=== PATIENT | female | born 1995 | race Caucasian/White ===

== ENCOUNTER 2017-04-14 01:11 | Observation (INO) | payer SELFPAY ==
[2017-04-14] MEDS ORDERED: ONDANSETRON 4 MG/2 ML VIAL IVPUSH ONE ×2 (04:13→10:22)
[2017-04-14 04:17] LABS: BASOPHIL 0.2 % (0-2.0); MCH 28.2 pg (25.7-33.7); MCHC 33.7 g/dl (32.0-36.0); MEAN CELL VOLUME 83.5 fl (80-96); MEAN PLT VOLUME 9.7 fl (7.5-11.1); NEUTROPHILS 89.8 % (42.8-82.8); PLATELET COUNT 296 K/MM3 (134-434); RDW 13.7 % (11.6-15.6); WHITE BLOOD COUNT 12.5 K/mm3 (4.0-10.0)
[2017-04-14] MEDS ORDERED: FAMOTIDINE 20 MG/50 ML IVPB 20 MG/50 ML MG IVPB ONE ×2 (04:18→04:23)
[2017-04-14] MEDS ORDERED: PANTOPRAZOLE SODIUM 40 MG VIAL IVPUSH ONE (04:18)
[2017-04-14] MEDS ORDERED: MAG HYDROX/AL HYDROX/SIMETH 355 ML ORAL.SUSP PO ONE (04:18)
[2017-04-14] MEDS ORDERED: PANTOPRAZOLE SODIUM 40 MG/100 ML BAG IVPB ONE (04:22)
[2017-04-14] MEDS ORDERED: MAG HYDROX/AL HYDROX/SIMETH 30 ML UNIT-DOSE CUP ONE (04:22)
--- NOTE | 2017-04-14 04:32 | PDOC ---
History of Present Illness - General Chief Complaint: Pain, Acute Stated Complaint: DIFFICULTY BREATHING, DIZZINESS Time Seen by Provider: 04/14/17 03:46 - History of Present Illness Initial Comments: 04/14/17 04:31 CHIEF COMPLAINT: abdominal pain, vomiting HISTORY OF PRESENT ILLNESS: 22 yo F with no significant PMH presents to ED with vomiting and diarrhea after eating sandwich and burger. Patient complains of RUQ pain and tenderness and states she has been vomiting "non stop, over 10-15 times" since this afternoon. Patient reports she has also had 4 episodes of diarrhea "back to back." She denies any fever but reports chills. Her LMP was "earlier this month" but very light, she states she has a Mirena IUD. No recent travel or sick contacts. PAST MEDICAL HISTORY: Denies past medical history FAMILY HISTORY: Denies SOCIAL HISTORY: Denies tobacco, alcohol, illicit drug use. SURGICAL HISTORY: Denies ALLERGIES: No known drug allergies REVIEW OF SYSTEMS General/Constitutional: Chills, weakness. . HEENT: Denies change in vision. Denies ear pain or discharge. Denies sore throat. Cardiovascular: Denies chest pain or shortness of breath. Respiratory: Denies cough, wheezing, or hemoptysis. Gastrointestinal: Persistent vomiting and diarrhea, RLQ pain. Denies rectal bleeding. Genitourinary: Denies dysuria, frequency, or change in urination. PHYSICAL EXAM General Appearance: Uncomfortable-appearing, appropriately dressed. No apparent distress. HEENT: EOMI, PERRLA. No conjunctival pallor. No photophobia, scleral icterus. Respiratory/Chest: Lungs CTAB. Cardiovascular: RRR. S1, S2. Gastrointestinal/Abdominal: Generalized tenderness to abdomen but more localized to RUQ. Normal bowel sounds. Abdomen soft, non-distended. No tenderness or rebound tenderness. No organomegaly, pulsatile mass, guarding, hernia, hepatomegaly, splenomegaly. Musculoskeletal/Extremities: Normal inspection. FROM of all extremities, normal capillary refill. Pelvis Stable. No CVA tenderness. No tenderness to extremities, pedal edema, swelling, erythema or deformity. Integumentary: Appropriate color, dry, warm. No cyanosis, erythema, jaundice or rash Neurologic: track repairer helper II-XII intact. Fully oriented, alert. Appropriate mood/affect. Motor strength 5/5. No appreciable EOM palsy, facial droop or sensory deficit. 04/14/17 05:18 04/14/17 07:51 Past History - Past Medical History Allergies/Adverse Reactions: Allergies Allergy/AdvReac Type Severity Reaction Status Date / Time No Known Allergies Allergy Verified 04/14/17 01:34 Home Medications: Ambulatory Orders NK [No Known Home Medication] 04/14/17 Asthma: No Cancer: No Cardiac Disorders: No COPD: No Diabetes: No HTN: No Seizures: No Thyroid Disease: No - Immunization History Immunization Up to Date: Yes - Suicide/Smoking/Psychosocial Hx Smoking Status: No Smoking History: Never smoked Number of Cigarettes Smoked Daily: 0 Hx Alcohol Use: No Drug/Substance Use Hx: No Hx Substance Use Treatment: No *Physical Exam - Vital Signs Last Vital Signs Temp Pulse Resp BP Pulse Ox 98.3 F 104 H 30 H 124/76 100 04/14/17 01:42 04/14/17 01:42 04/14/17 01:42 04/14/17 01:42 04/14/17 01:42 ED Treatment Course - LABORATORY CBC & Chemistry Diagram: 04/15/17 08:08 04/15/17 08:08 - ADDITIONAL ORDERS Additional order review: 04/14/17 04:05 RBC 4.71 D MCV 83.5 MCHC 33.7 RDW 13.7 D MPV 9.7 Neutrophils % 89.8 H Lymphocytes % 8.2 D Monocytes % 1.8 L Eosinophils % 0.0 D Basophils % 0.2 - Medications Given in the ED: ED Medications Discontinued Medications Generic Name Dose Route Start Last Admin Trade Name Freq PRN Reason Stop Dose Admin Al Hydroxide/Mg Hydroxide 30 ml 04/14/17 04:18 04/14/17 04:26 Mylanta Suspension - PO 04/14/17 04:19 30 ml ONCE ONE Administration Ondansetron HCl 4 mg 04/14/17 04:13 04/14/17 04:19 Zofran Injection IVPUSH 04/14/17 04:14 4 mg ONCE ONE Administration Pantoprazole Sodium 40 mg 04/14/17 04:18 04/14/17 04:27 Protonix Iv IVPUSH 04/14/17 04:19 40 mg ONCE ONE Administration Medical Decision Making - Medical Decision Making 04/14/17 07:48 22 yo F with no significant PMH presents to ED with vomiting and diarrhea after eating sandwich and burger. -IVF, Zofran, toradol -CBC, CMP, lipase/amylase -UA, UCx, upreg labs: WBC 12.5, otherwise unremarkable Patient reassesesd, at this time she still complains of pain and is still vomiting. -Regland, camiadryl Patient raassessed, still pale and uncomfortable appearing, -Bentyl po Patient reassessed, continues to have abd pain and tenderness to RUQ, patient diaphoretic will order abdomen and pelvis ct Case discussed in detail with oncoming emergency provider including history, physical exam and ancillary studies. In brief, this patient is being seen in the ED for a chief complaint of: abd pain I have completed the initial assessment interview note and have ordered the following labs: cbc, cmp, lipase, amylase, urine I have reviewed the following results: all Pending results: CT Plan for disposition as follows: pending Oncoming NPA Christopher has assumed care for the patient and will complete the evaluation and treatment. *DC/Admit/Observation/Transfer Diagnosis at time of Disposition: Intractable vomiting with nausea - Discharge Dispostion Disposition: HOME Condition at time of disposition: Improved - Referrals - Patient Instructions - Post Discharge Activity
[2017-04-14 04:43] LABS: ALBUMIN 4.2 g/dl (3.4-5.0); AMYLASE 69 U/L (25-115); ANION GAP 9 (8-16); BILIRUBIN,TOTAL 0.6 mg/dL (0.2-1.0); CALCIUM 8.9 mg/dL (8.5-10.1); CO2 25 mmol/L (21-32); CREATININE 0.7 mg/dL (0.55-1.02); GLUCOSE,RANDOM 137 mg/dL (74-106); SGOT/AST 10 U/L (15-37); SGPT/ALT 20 U/L (12-78); TOT PROT 8.3 g/dl (6.4-8.2)
[2017-04-14 04:44] LABS: ALK PHOS 72 U/L (45-117)
[2017-04-14] MEDS ORDERED: DICYCLOMINE HCL 20 MG TABLET PO ONE (05:44)
[2017-04-14] MEDS ORDERED: DICYCLOMINE HCL 10 MG CAPSULE ONE (05:46)
[2017-04-14] MEDS ORDERED: METOCLOPRAMIDE HCL INJECTION 10 MG/2 ML VIAL IVPUSH ONE (06:21)
[2017-04-14] MEDS ORDERED: METOCLOPRAMIDE HCL INJECTION 10 MG/2 ML VIAL ONE (06:27)
--- NOTE | 2017-04-14 09:13 | PDOC ---
*Physical Exam - Vital Signs Last Vital Signs Temp Pulse Resp BP Pulse Ox 97.8 F 84 20 124/86 100 04/14/17 08:10 04/14/17 08:10 04/14/17 08:10 04/14/17 08:10 04/14/17 08:10 - Physical Exam General Appearance: Yes: Appropriately Dressed. No: Apparent Distress HEENT: positive: ERIC, Normal Voice, Symmetrical Respiratory/Chest: positive: Lungs Clear, Normal Breath Sounds. negative: Chest Tender, Respiratory Distress, Accessory Muscle Use Cardiovascular: positive: Regular Rhythm, Regular Rate Gastrointestinal/Abdominal: positive: Normal Bowel Sounds, Soft. negative: Tender Musculoskeletal: positive: Normal Inspection. negative: CVA Tenderness Extremity: positive: Normal Capillary Refill, Normal Range of Motion. negative : Normal Inspection Integumentary: positive: Normal Color, Dry, Warm Neurologic: positive: extension service agent II-XII NML intact, Fully Oriented, Alert, Normal Mood/ Affect ED Treatment Course - LABORATORY CBC & Chemistry Diagram: 04/14/17 04:05 04/14/17 04:14 - ADDITIONAL ORDERS Additional order review: Laboratory Results 04/14/17 04/14/17 04/14/17 06:59 04:14 04:05 Sodium 140 Potassium 3.8 Chloride 106 Carbon Dioxide 25 Anion Gap 9 BUN 9 D Creatinine 0.7 D Creat Clearance w eGFR > 60 Random Glucose 137 H D Calcium 8.9 Total Bilirubin 0.6 AST 10 L ALT 20 Alkaline Phosphatase 72 D Total Protein 8.3 H Albumin 4.2 Total Amylase 69 Lipase 62 L Serum , Qual Negative 04/14/17 04:05 RBC 4.71 D MCV 83.5 MCHC 33.7 RDW 13.7 D MPV 9.7 Neutrophils % 89.8 H Lymphocytes % 8.2 D Monocytes % 1.8 L Eosinophils % 0.0 D Basophils % 0.2 - Medications Given in the ED: ED Medications Discontinued Medications Generic Name Dose Route Start Last Admin Trade Name Freq PRN Reason Stop Dose Admin Al Hydroxide/Mg Hydroxide 30 ml 04/14/17 04:18 04/14/17 04:26 Mylanta Suspension - PO 04/14/17 04:19 30 ml ONCE ONE Administration Dicyclomine HCl 20 mg 04/14/17 05:44 04/14/17 05:52 Bentyl - PO 04/14/17 05:45 20 mg ONCE ONE Administration Diphenhydramine HCl 25 mg 04/14/17 06:21 04/14/17 06:44 Benadryl Injection - IVPUSH 04/14/17 06:22 25 mg ONCE ONE Administration Famotidine/Sodium Chloride 20 mg in 50 mls @ 100 mls/hr 04/14/17 04:18 04:27 Pepcid 20 Mg Premixed Ivpb - IVPB 04/14/17 04:47 100 mls/hr ONCE ONE Administration Metoclopramide HCl 10 mg 04/14/17 06:21 04/14/17 06:44 Reglan Injection - IVPUSH 04/14/17 06:22 10 mg ONCE ONE Administration Ondansetron HCl 4 mg 04/14/17 04:13 04/14/17 04:19 Zofran Injection IVPUSH 04/14/17 04:14 4 mg ONCE ONE Administration Pantoprazole Sodium 40 mg 04/14/17 04:18 04/14/17 04:27 Protonix Iv IVPUSH 04/14/17 04:19 40 mg ONCE ONE Administration Medical Decision Making - Medical Decision Making 04/14/17 09:27 Received signout from his practitioner Melissa. This is a 22-year-old woman who presented with abdominal pain nausea and vomiting. After receiving Reglan, Benadryl, Zofran, IV fluids, patient says she started to feel better. I present currently awaiting read of the CT scan for disposition. 04/14/17 10:31 [id number] CT/ABDOMEN PELVIS CT WITH CONTR Right upper quadrant and abdominal pain CT scan of the abdomen and pelvis following intravenous contrast. Coronal and sagittal reformatted images were obtained 80 cc of Omnipaque 350 was intravenously injected Comparison: None available Visualized lung base appears unremarkable and the heart is within normal limits in size. The stomach is not distended and hence its wall cannot be evaluated. The liver is within normal limits in size. There is a faint focal low-attenuation density in the right hepatic lobe, inferiorly best visualized on axial image 47 measuring 1.4 cm that may represent a hemangioma. The spleen, pancreas, gallbladder, both adrenal glands and both kidneys appear unremarkable. There is no evidence of small bowel obstruction. Normal-appearing terminal ileum and appendix Normal stool burden in the colon without wall thickening Partially distended urinary bladder without wall thickening. Normal size uterus with an intrauterine device in place. There is a cystic density in the right hemipelvis measuring 2.6 cm likely representing a dominant follicle. A smaller less well-visualized cystic density in the left adnexa measuring 1.4 cm. No free fluid, free air or enlarged lymph nodes are identified. There is very minimal anterolisthesis of L4 over L5 with minimal broadbase disc bulge. Otherwise, visualized osseous structures appear intact. Impression: Faint focal low-attenuation density in the right hepatic lobe, inferiorly measuring 1.4 cm. Differential diagnosis includes a cavernous hemangioma. Correlation with ultrasound or a contrast- enhanced CT scan/MRI utilizing hemangioma protocol is needed. Normal-appearing appendix. No CT evidence of an acute process in the abdomen and pelvis. Intrauterine device in satisfactory position. Right adnexal cystic density measuring 2.6 cm that may represent a dominant follicle. Correlation with pelvis ultrasound is needed. Reported By: Theo Mondragon MD 04/14/17 1008 Nausea and vomiting persist despite getting medicated with Reglan, Zofran, Bentyl, Maalox. I have Prescribed the patient 4 mg of Zofran and 1 mg of Ativan at this time. I will contact Dr. Lucero for observation at this time. 04/14/17 11:[address] Cagle. Patient to be admitted for observation. *DC/Admit/Observation/Transfer Diagnosis at time of Disposition: Intractable vomiting with nausea Qualifiers: Vomiting type: unspecified Qualified Code(s): R11.2 - Nausea with vomiting, unspecified - Discharge Dispostion Condition at time of disposition: Guarded Admit: Yes - Referrals - Patient Instructions - Post Discharge Activity
[2017-04-14] MEDS ORDERED: LORazepam 2 MG/ML SDV VIAL ONE (10:34)
--- NOTE | 2017-04-14 11:34 | HP ---
CHIEF COMPLAINT: Abdominal pain, nausea, vomiting PCP: Amina Morrison HISTORY OF PRESENT ILLNESS: This is a 22 year old woman who presented to the ED this morning complaining of abdominal pain, nausea, vomiting, and diarrhea. Her symptoms started after eating yesterday afternoon. The pain was mostly in the RUQ. She denies fever, chills, hematemesis, melena, rectal bleeding. She has not eaten anything or anywhere unusual. She has not traveled recently. In the ED , she has been treated with Zofran IVP, Mylanta PO, Pepcid IVPB, Protonix IV. She continued to have pain and she was then treated with Bentyl PO. Symptoms persisted, so she was then treated with Benadryl IVP and Reglan IVP. She still had no relief and was then treated with Ativan IVP and Zofran IVP. CT abdomen/ pelvis showed faint focal low attenuation density in right hepatic lobe - possible cavernous hemangioma, normal appendix, IUD in place, right adnexal cystic density - possible dominant follicle. She says she is feeling a little better and is very sleepy. PAST MEDICAL HISTORY: None PAST SURGICAL HISTORY: None Allergies No Known Allergies Allergy (Verified 04/14/17 01:34) HOME MEDICATIONS: 3 Medication Instructions Recorded NK [No Known Home Medication] 04/14/17 Social History: Smoking: Denies Alcohol: Denies Drugs: Denies Recent Travel: No Family History: Unremarkable REVIEW OF SYSTEMS CONSTITUTIONAL: Absent: fever, chills, diaphoresis, generalized weakness, malaise, loss of appetite, weight change HEENT: Absent: rhinorrhea, nasal congestion, throat pain, throat swelling, difficulty swallowing, mouth swelling, ear pain, eye pain, visual changes CARDIOVASCULAR: Absent: chest pain, syncope, palpitations, lightheadedness, peripheral edema RESPIRATORY: Absent: cough, shortness of breath, dyspnea with exertion, orthopnea, wheezing, stridor, hemoptysis GASTROINTESTINAL: Present: abdominal pain, nausea, vomiting, diarrhea. Absent: abdominal distension, constipation, melena, hematochezia GENITOURINARY: Absent: dysuria, frequency, urgency, hesitancy, hematuria, flank pain MUSCULOSKELETAL: Absent: myalgia, arthralgia, joint swelling, back pain, neck pain SKIN: Absent: rash, itching, pallor HEMATOLOGIC/IMMUNOLOGIC: Absent: easy bleeding, easy bruising, lymphadenopathy, frequent infections ENDOCRINE: Absent: unexplained weight gain, unexplained weight loss, heat intolerance, cold intolerance NEUROLOGIC: Absent: headache, focal weakness or paresthesias, dizziness, unsteady gait, seizure, mental status changes, bladder or bowel incontinence PSYCHIATRIC: Absent: anxiety, depression, suicidal or homicidal ideation, hallucinations. PHYSICAL EXAMINATION Vital Signs - 24 hr 04/14/17 04/14/17 01:42 08:10 Temperature 98.3 F 97.8 F Pulse Rate 104 H Pulse Rate [ 84 Left Apical] Respiratory 30 H 20 Rate Blood Pressure 124/76 Blood Pressure 124/86 [Left Arm] O2 Sat by Pulse 100 100 Oximetry (%) GENERAL: Drowsy, fully oriented, in no acute distress. HEAD: Normal with no signs of trauma. EYES: Pupils equal, round and reactive to light, extraocular movements intact, sclera anicteric, conjunctiva clear. EARS, NOSE, THROAT: Ears normal, nares patent, oropharynx clear without exudates. Moist mucous membranes. NECK: Normal range of motion, supple without lymphadenopathy, JVD, or masses. LUNGS: Breath sounds equal, clear to auscultation bilaterally. No wheezes, and no crackles. No accessory muscle use. HEART: Regular rate and rhythm, normal S1 and S2 without murmur, rub or gallop. ABDOMEN: Soft, mild RUQ tenderness, not distended, normoactive bowel sounds, no guarding, no rebound, no masses. No hepatomegaly or splenomegaly. MUSCULOSKELETAL: Normal range of motion at all joints. No bony deformities or tenderness. No CVA tenderness. UPPER EXTREMITIES: 2+ pulses, warm, well-perfused. No cyanosis. No clubbing. No peripheral edema. LOWER EXTREMITIES: 2+ pulses, warm, well-perfused. No calf tenderness. No peripheral edema. NEUROLOGICAL: Normal speech. No gross focal deficits. Gait not observed PSYCHIATRIC: Cooperative. Good eye contact. Appropriate mood and affect. SKIN: Warm, dry, normal turgor, no rashes or lesions noted, normal capillary refill. Laboratory Results - last 24 hr 04/14/17 04/14/17 04/14/17 04:05 04:05 04:14 WBC 12.5 H D RBC 4.71 D Hgb 13.3 D Hct 39.3 D MCV 83.5 MCH 28.2 MCHC 33.7 RDW 13.7 D Plt Count 296 D MPV 9.7 Neutrophils % 89.8 H Lymphocytes % 8.2 D Monocytes % 1.8 L Eosinophils % 0.0 D Basophils % 0.2 Sodium 140 Potassium 3.8 Chloride 106 Carbon Dioxide 25 Anion Gap 9 BUN 9 D Creatinine 0.7 D Creat Clearance w eGFR > 60 Random Glucose 137 H D Calcium 8.9 Total Bilirubin 0.6 AST 10 L ALT 20 Alkaline Phosphatase 72 D Total Protein 8.3 H Albumin 4.2 Total Amylase 69 Lipase 62 L Serum , Qual 04/14/17 06:59 WBC RBC Hgb Hct MCV MCH MCHC RDW Plt Count MPV Neutrophils % Lymphocytes % Monocytes % Eosinophils % Basophils % Sodium Potassium Chloride Carbon Dioxide Anion Gap BUN Creatinine Creat Clearance w eGFR Random Glucose Calcium Total Bilirubin AST ALT Alkaline Phosphatase Total Protein Albumin Total Amylase Lipase Serum , Qual Negative ASSESSMENT/PLAN: This is a healthy 22 year old woman who presented to the ED complaining of nausea, vomiting, diarrhea and RUQ pain. She has received no relief after receiving IV fluid, Zofran, Mylanta, Pepcid, Protonix, Bentyl, Reglan, and Ativan. 1. Intractable RUQ abdominal pain with nausea, vomiting, and diarrhea likely secondary to gastroenteritis - Place in observation - CT abdomen/pelvis shows faint focal low attenuation density in right hepatic lobe possible cavernous hemangioma, normal appendix, IUD in place, right adnexal cystic density possible dominant follicle. - Continue IV fluid, Pepcid, Zofran 2. Leukocytosis - Likely reactive - Will monitor 3. Right hepatic lobe density, possible cavernous hemangioma - Outpatient work-up with CT with contrast or MRI 4. Right adnexal cyst - Outpatient pelvic US
[2017-04-14] MEDS ORDERED: ACETAMINOPHEN 325 MG TABLET (FP) PO PRN (12:29)
[2017-04-14] MEDS ORDERED: ONDANSETRON 4 MG/2 ML VIAL IVPUSH PRN (12:29)
[2017-04-14] MEDS: DEXTROSE 5%-NORMAL SALINE 1,000 ML IV SCH ×3 (12:39→23:18)
[2017-04-14 15:23] VITALS: BMI 32.0
[2017-04-14] MEDS ORDERED: FLU VACCINE QUAD 60 MCG/0.5 ML (MDV 17-18) IM ONE (16:00)
[2017-04-14] MEDS: FAMOTIDINE 20 MG/50 ML IVPB 20 MG/50 ML MG IVPB SCH (21:32)
[2017-04-15] MEDS: DEXTROSE 5%-NORMAL SALINE 1,000 ML IV SCH (08:06)
[2017-04-15 08:15] LABS: BASOPHIL 0.2 % (0-2.0); EOSINOPHIL 0.2 % (0-4.5); MCH 28.6 pg (25.7-33.7); MCHC 33.7 g/dl (32.0-36.0); MEAN CELL VOLUME 84.8 fl (80-96); MEAN PLT VOLUME 9.3 fl (7.5-11.1); NEUTROPHILS 69.6 % (42.8-82.8); PLATELET COUNT 204 K/MM3 (134-434); RDW 13.8 % (11.6-15.6); WHITE BLOOD COUNT 7.6 K/mm3 (4.0-10.0)
[2017-04-15 08:44] LABS: ANION GAP 10 (8-16); CALCIUM 7.8 mg/dL (8.5-10.1); CO2 23 mmol/L (21-32); CREATININE 0.6 mg/dL (0.55-1.02); GLUCOSE,RANDOM 107 mg/dL (74-106); PHOSPHOROUS 1.9 mg/dL (2.5-4.9)
[2017-04-15] MEDS: FAMOTIDINE 20 MG/50 ML IVPB 20 MG/50 ML MG IVPB SCH (09:37)
[2017-04-15 10:07] LABS: ALBUMIN 3.1 g/dl (3.4-5.0)
[2017-04-15] MEDS ORDERED: NAPH,MB-DB/K PH,MBDB POWDER PACKET PO ONE (10:15)
[2017-04-15] MEDS ORDERED: POTASSIUM CHLORIDE TABS 20 MEQ TABLET.ER (FP) PO ONE (10:15)
--- NOTE | 2017-04-15 10:31 | DS ---
Physical Examination Vital Signs: Vital Signs Temperature 98.2 F 04/15/17 08:15 Pulse Rate 72 04/15/17 08:15 Respiratory Rate 20 04/15/17 02:00 Blood Pressure 100/60 04/15/17 08:15 O2 Sat by Pulse Oximetry (%) 98 04/14/17 20:30 Labs: CBC, BMP 04/15/17 08:08 04/15/17 08:08 Discharge Summary Reason For Visit: INTRACTABLE VOMITING,NAUSEA Current Active Problems Intractable vomiting with nausea (Acute) Condition: Improved - Instructions Diet, Activity, Other Instructions: Please return to the ED with new, persistent, or worsening symptoms. Please follow-up with providers as indicated. Referrals: Vero Coffey MD [Staff Physician] - (Please follow-up with [facility] within 1 week for further evaluation of your right ovarian cyst) Josse Spring MD [Staff Physician] - (Please follow-up with your primary care provider within 2-3 days to have your potassium, phosphorous, and calcium levels rechecked and for further workup of your right hepatic lobe density) Disposition: HOME - Home Medications Comprehensive Discharge Medication List: Ambulatory Orders NK [No Known Home Medication] 04/14/17
[2017-04-15] MEDS ORDERED: CALCIUM CARBONATE 650 MG TABLET PO ONE (11:00)
[2017-04-15 12:14] VITALS: BP 106/70; PULSE 80; TEMP 98
== END 2017-04-15 13:50 | disposition home or self-care (01) ==
LOC: JER 01:11 → JERBED 11:23 → J6S 15:14
PROVIDERS: ADMIT Internal Medicine; ATTEND Registered Nurse
CPT/HCPCS: 36415; 74177-TC; 80048; 80053; 82040; 82150; 83690; 83735; 84100; 84703; 85025; 90688; 99284-25; G0378

== ENCOUNTER 2022-06-09 16:04 | Emergency (ER) | payer OTHER ==
[2022-06-09 16:09] VITALS: TEMP 99.2; BMI 31.6
[2022-06-09] MEDS ORDERED: SODIUM CHLORIDE 0.9% 500 ML INFUS.BAG IV ONE (16:30)
[2022-06-09] MEDS ORDERED: ACETAMINOPHEN 1000 MG/100 ML BAG IVPB ONE (17:02)
[2022-06-09] MEDS ORDERED: ACETAMINOPHEN INJECTION 100 ML IVPB ONE (17:50)
[2022-06-09 18:14] LABS: BASO % 0.1 % (0-2.0); HEMOGLOBIN 9.2 GM/dL (10.7-15.3); LYMPH % 10.6 % (8-40); MCH 23.4 pg (25.7-33.7); MCHC 31.8 g/dl (32.0-36.0); MEAN CELL VOLUME 73.4 fl (80-96); MONO % 7.4 % (3.8-10.2); NEUT % 81.9 % (42.8-82.8); PLATELET COUNT 271 10^3/uL (134-434); RBC 3.96 M/mm3 (3.60-5.2); RDW 15.6 % (11.6-15.6); WHITE BLOOD COUNT 10.9 K/mm3 (4.0-10.0)
[2022-06-09 18:18] LABS: HCG,QUALITATIVE URINE Negative
[2022-06-09 18:20] LABS: EPI CELLS >36 /uL (0-25.1); HYALINE CASTS 13 /uL (0-3.1); URINE APPEARANCE CLOUDY; URINE BACTERIA 1788 /uL (0-1359); URINE BILIRUBIN NEGATIVE (NEGATIVE); URINE COLOR DK YELLOW; URINE GLUCOSE (UA) NEGATIVE (NEGATIVE); URINE KETONE 1+ (NEGATIVE); URINE LEUK ESTERASE NEGATIVE (NEGATIVE); URINE NITRITE NEGATIVE (NEGATIVE); URINE PROTEIN 2+ (NEGATIVE); URINE WBC 54 /uL (0-25.8)
[2022-06-09 18:31] LABS: CALCIUM 8.7 mg/dL (8.5-10.1)
[2022-06-09 18:32] LABS: ALBUMIN 3.6 g/dl (3.4-5.0); BLOOD UREA NITROGEN 10.5 mg/dL (7-18)
[2022-06-09 18:35] LABS: CREATININE 0.9 mg/dL (0.55-1.3)
[2022-06-09 18:37] LABS: BILIRUBIN,TOTAL 0.7 mg/dL (0.2-1); TOT PROT 7.6 g/dl (6.4-8.2)
[2022-06-09 19:19] LABS: URINE RBC 5 /uL (0-23.9)
[2022-06-09 20:02] VITALS: BP 110/71; PULSE 89; RESP 19
== END 2022-06-09 20:02 | disposition home or self-care (01) ==
LOC: JER 16:04
PROC: 3E033GC Introduction of Other Therapeutic Substance into Peripheral Vein, Percutaneous Approach (ICD-10-PCS; principal; 2022-06-09)
DX: K52.9 Noninfective gastroenteritis and colitis, unspecified (principal)
CPT/HCPCS: 0241U-QW; 36415; 74177-TC; 80053; 81003; 83690; 84703; 85025; 99285-25; Q9967

== ENCOUNTER 2023-09-07 06:20 | Emergency (ER) | payer OTHER ==
[2023-09-07 06:32] VITALS: RESP 20; TEMP 98.7; BMI 33.3
[2023-09-07] MEDS ORDERED: ACETAMINOPHEN INJECTION 100 ML IVPB ONE (07:17)
[2023-09-07] MEDS ORDERED: FAMOTIDINE 20 MG/50 ML IVPB 20 MG/50 ML MG IVPB ONE (07:17)
[2023-09-07] MEDS ORDERED: ONDANSETRON 4 MG/2 ML VIAL ONE (07:17)
[2023-09-07] MEDS: ACETAMINOPHEN 1000 MG/100 ML BAG IVPB ONE (07:37)
[2023-09-07] MEDS: SODIUM CHLORIDE 1,000 ML IV STA (07:37)
[2023-09-07] MEDS: ONDANSETRON 4 MG/2 ML VIAL IVPUSH ONE (07:38)
[2023-09-07] MEDS: FAMOTIDINE 20 MG/50 ML IVPB 20 MG/50 ML MG IVPB ONE (07:38)
[2023-09-07 07:47] LABS: BASO % 0.3 % (0-2.0); EOS % 0.2 % (0-4.5); HEMATOCRIT 33.8 % (32.4-45.2); HEMOGLOBIN 10.8 GM/dL (10.7-15.3); LYMPH % 6.8 % (8-40); MCH 23.8 pg (25.7-33.7); MEAN CELL VOLUME 74.4 fl (80-96); MEAN PLT VOLUME 9.2 fl (7.5-11.1); MONO % 4.5 % (3.8-10.2); NEUT % 88.2 % (42.8-82.8); PLATELET COUNT 277 10^3/uL (134-434); RBC 4.54 M/mm3 (3.60-5.2); RDW 22.2 % (11.6-15.6); WHITE BLOOD COUNT 8.8 K/mm3 (4.0-10.0)
[2023-09-07 08:00] LABS: POTASSIUM 4.5 mmol/L (3.5-5.1)
[2023-09-07 08:02] LABS: ALBUMIN 3.6 g/dl (3.4-5.0); CALCIUM 8.8 mg/dL (8.5-10.1)
[2023-09-07 08:03] LABS: BLOOD UREA NITROGEN 11.2 mg/dL (7-18)
[2023-09-07 08:06] LABS: CREATININE 0.7 mg/dL (0.55-1.3)
[2023-09-07 08:07] LABS: BILIRUBIN,TOTAL 0.6 mg/dL (0.2-1)
[2023-09-07 08:43] LABS: EPI CELLS >36 /uL (0-25.1); HYALINE CASTS 1 /uL (0-3.1); PH,URINE 5.5 (5.0-8.0); URINE APPEARANCE TURBID; URINE BACTERIA 393 /uL (0-1359); URINE BILIRUBIN NEGATIVE (NEGATIVE); URINE COLOR YELLOW; URINE GLUCOSE (UA) NEGATIVE (NEGATIVE); URINE KETONE TRACE (NEGATIVE); URINE LEUK ESTERASE NEGATIVE (NEGATIVE); URINE NITRITE NEGATIVE (NEGATIVE); URINE PROTEIN 1+ (NEGATIVE); URINE RBC 26 /uL (0-23.9); URINE WBC 24 /uL (0-25.8)
[2023-09-07 08:55] VITALS: BP 116/69; PULSE 77
[2023-09-07 09:38] LABS: ANISOCYTOSIS 3+; MACROCYTOSIS 0
== END 2023-09-07 09:13 | disposition home or self-care (01) ==
LOC: JER 06:20
PROC: 3E033GC Introduction of Other Therapeutic Substance into Peripheral Vein, Percutaneous Approach (ICD-10-PCS; principal; 2023-09-07)
PROC: 3E033GC Introduction of Other Therapeutic Substance into Peripheral Vein, Percutaneous Approach (ICD-10-PCS; 2023-09-07)
PROC: 3E033NZ Introduction of Analgesics, Hypnotics, Sedatives into Peripheral Vein, Percutaneous Approach (ICD-10-PCS; 2023-09-07)
DX: K52.9 Noninfective gastroenteritis and colitis, unspecified (principal); R11.2 Nausea with vomiting, unspecified; R10.84 Generalized abdominal pain; Z20.822 Contact with and (suspected) exposure to COVID-19
CPT/HCPCS: 0241U-QW; 36415; 80053; 81003; 83690; 84703; 85025; 87086; 93005; 93010; 99284-25; J0131